=== PATIENT | male | born 1960 | race Two or more races ===

== ENCOUNTER 2019-12-15 12:27 | Emergency (ER) | payer BC ==
--- NOTE | 2019-12-15 13:02 | TELE ---
HPI Do you have fever,cough or shortness of breath?: No - General Reason For Visit: COVID TESTING 19 History Source: Patient Exam Limitations: No Limitations - History of Present Illness Timing/Duration: unsure Associated Symptoms: reports: denies symptoms 12/15/19 13:46 Patient will be traveling to the [facility]] later this month and is requesting testing since he will be with his elderly mother and his daughter is currently . Otherwise patient is asymptomatic Past History - Travel History Traveled outside of the country in the last 30 days: No Close contact w/someone who was outside of country & ill: No - Psycho-Social/Smoking History Patient Lives Alone: No Lives with/in: spouse/SO Review of Systems - Review of Systems Able to Perform ROS?: Yes Limited Cambodian proficient: No Constitutional: No: Symptoms Reported HEENTM: No: Symptoms Reported Respiratory: No: Symptoms reported Cardiac (ROS): No: Symptoms Reported ABD/GI: No: Symptoms Reported : No: Symptoms Reported Musculoskeletal: No: Symptoms Reported Integumentary: No: Symptoms Reported Neurological: No: Symptoms reported Endocrine: No: Symptoms Reported Hematologic/Lymphatic: No: Symptoms Reported *Physical Exam - Physical Exam General Appearance: Yes: Nourished, Appropriately Dressed. No: Apparent Distress HEENT: positive: EOMI Neck: negative: Decreased range of motion Respiratory/Chest: negative: Respiratory Distress Gastrointestinal/Abdominal: negative: Distended Extremity: positive: Normal Range of Motion Integumentary: positive: Normal Color Neurologic: positive: Fully Oriented - Medical Decision Making 12/15/19 13:47 Patient requesting cover testing for travel. Patient is asymptomatic. Patient will not be tested until the . Have consulted with Dr. Bruno in regards to Delayed testing and chart initiated today Discharge Diagnosis at time of Disposition: Encounter for screening laboratory testing for COVID-19 virus - Referrals - Patient Instructions - Discharge Disposition: HOME Condition at time of Disposition: Good
== END 2019-12-15 14:21 | disposition home or self-care (01) ==
LOC: JVIRT 12:27
DX: Z11.59 Encounter for screening for other viral diseases (principal)
CPT/HCPCS: Q3014-GT; U0003